=== PATIENT | male | born 1965 | race Caucasian/White ===

== ENCOUNTER 2021-03-10 08:50 | Inpatient (IN) | payer MEDICAID ==
[~2021-03-10] VITALS: Ht 177.8 cm; Wt 77.0 kg
[2021-03-10 10:14] LABS: BASOPHILS # (AUTO) 0.1 X10'3 (0-0.2); BASOPHILS % (AUTO) 0.6 % (0-1); EOSINOPHILS # (AUTO) 0.1 X10'3 (0-0.9); EOSINOPHILS % (AUTO) 0.7 % (0-6); HEMATOCRIT 42.4 % (42.0-52.0); HEMOGLOBIN 14.4 g/dl (14.0-17.9); LYMPHOCYTES # (AUTO) 1.8 X10'3 (1.1-4.8); LYMPHOCYTES % (AUTO) 12.3 % (21-51); MEAN CORPUSCULAR HEMOGLOBIN 31.6 PG (27.0-31.0); MEAN CORPUSCULAR VOLUME 92.8 FL (78-98); MEAN PLATELET VOLUME 6.4 FL (7.4-10.4); MONOCYTES # (AUTO) 1.3 X10'3 (0-0.9); MONOCYTES % (AUTO) 8.9 % (2-12); NEUTROPHILS # (AUTO) 11.3 X10'3 (1.8-7.7); NEUTROPHILS % (AUTO) 77.5 % (42-75); PLATELET COUNT 626 X10'3 (140-440); RED BLOOD COUNT 4.56 X10'6 (4.70-6.10); RED CELL DISTRIBUTION WIDTH 12.6 % (11.5-14.5); WHITE BLOOD COUNT 14.6 X10'3 (4.5-11.0)
[2021-03-10 10:35] LABS: ALANINE AMINOTRANSFERASE 17 U/L (12-78); ALKALINE PHOSPHATASE 64 IU/L (46-116); ANION GAP 14 (8-16); ASPARTATE AMINO TRANSFERASE 16 U/L (10-37); BILIRUBIN,TOTAL 0.3 MG/DL (0.1-1.0); BLOOD UREA NITROGEN 11 MG/DL (7-18); CALCIUM 8.6 MG/DL (8.5-10.1); CHLORIDE 96 MMOL/L (99-107); GLUCOSE 108 MG/DL (70-104); SODIUM 132 MMOL/L (135-145); TOTAL CARBON DIOXIDE 22.3 MMOL/L (24-32); TOTAL PROTEIN 7.9 G/DL (6.4-8.2); eGFR 78 ML/MIN
[2021-03-10] MEDS ORDERED: pantoprazole 40MG/NS 100ML BAG 100 ML IV ONE (11:30)
[2021-03-10] MEDS ORDERED: LORazepam 2 mg/ml vial IV ONE (11:30)
[2021-03-10] MEDS ORDERED: pantoprazole 40 MG vial IV ONE (11:30)
[2021-03-10] MEDS ORDERED: normal saline 1000ML IV soln IVB ONE (11:30)
[2021-03-10] MEDS ORDERED: ondansetron/PF 4mg/2ml inj IV ONE (11:30)
[2021-03-10] MEDS ORDERED: potassium Cl 20 mEq SR tablet PO PRN ×2 (11:55)
[2021-03-10] MEDS ORDERED: magnesium 4gm in 100ml NS 100 ML IV PRN (11:55)
[2021-03-10] MEDS ORDERED: magnesium Cl slow-release 64mg tablet PO PRN (11:55)
[2021-03-10] MEDS ORDERED: mag hydrox/Alum hydrox/simeth 30ml oral suspension PO PRN (11:55)
[2021-03-10] MEDS ORDERED: magnesium 2GM in 50ml NS 50 ML IV PRN (11:55)
[2021-03-10] MEDS ORDERED: magnesium hydroxide 30ml (MOM) UD suspension PO PRN (11:55)
[2021-03-10] MEDS ORDERED: ondansetron/PF 4mg/2ml inj IV PRN (11:55)
[2021-03-10] MEDS ORDERED: dextrose 50%-water 50ml dispensing syringe IV PRN (11:55)
[2021-03-10] MEDS ORDERED: HYDROcodone/acetaminophen 5mg/325mg tablet PO PRN (11:55)
[2021-03-10] MEDS ORDERED: potassium Cl 40MEQ/1/2NS 520ml 520 ML IV PRN ×2 (11:55)
[2021-03-10] MEDS ORDERED: acetaminophen 325mg tablet PO PRN ×2 (11:55)
[2021-03-10 11:59] LABS: LIPASE 76 U/L (73-393)
[2021-03-10 12:01] LABS: PARTIAL THROMBOPLASTIN TIME 26 SECONDS (22-32)
[2021-03-10] MEDS ORDERED: NO HOME MEDS (12:21)
[2021-03-10] MEDS: LORazepam 2 mg/ml vial IV PRN ×3 (12:40→15:49)
[2021-03-10] MEDS: normal saline 1000ml 1,000 ML IV SCH ×2 (12:41→20:56)
[2021-03-10] MEDS ORDERED: HYDR-3686 PO (12:51)
[2021-03-10] MEDS ORDERED: HYDR-3972 PO (12:51)
[2021-03-10] MEDS ORDERED: ESCI20TA PO (12:51)
[2021-03-10] MEDS ORDERED: FENO200C PO (12:51)
[2021-03-10] MEDS ORDERED: CYCL-394 PO (12:51)
[2021-03-10] MEDS ORDERED: METO-411 PO (12:51)
[2021-03-10] MEDS: morphine 2 MG/ML inj. syringe IV PRN (13:37)
--- NOTE | 2021-03-10 16:00 | NUR ---
LEIGH HERNANDEZ THAT PT IS STILL VERY ANXIOUS AFTER 3 DOSES OF ATIVAN. WILL ORDER HALDOL
[2021-03-10 16:11] LABS: CLARITY,URINE CLEAR (Clear); COLOR,URINE YELLOW (Yellow); GLUCOSE, URINE NEGATIVE (Neg); KETONES,URINE NEGATIVE (Neg); LEUKOCYTE ESTERASE ,URINE NEGATIVE (Neg); NITRITES, URINE NEGATIVE (Neg); OCCULT BLOOD,URINE NEGATIVE (Neg); PH,URINE 6.5 (4.8-8.0); PROTEIN,URINE NEGATIVE (Neg)
[2021-03-10 16:14] LABS: UA COLLECTION TYPE URINAL
[2021-03-10 16:20] LABS: URINE AMPHETAMINE SCREEN NEGATIVE (Neg); URINE BARBITUATE SCREEN NEGATIVE (Neg); URINE BENZODIAZEPINES SCREEN NEGATIVE (Neg); URINE CANNABINOID SCREEN POSITIVE (Neg); URINE COCAINE SCREEN NEGATIVE (Neg); URINE METHADONE SCREEN NEGATIVE (Neg); URINE OPIATE SCREEN POSITIVE (Neg); URINE PHENCYCLIDINE SCREEN NEGATIVE (Neg)
[2021-03-10] MEDS: haloperidol 5mg tablet PO PRN (16:40)
--- NOTE | 2021-03-10 17:40 | NUR ---
PAGER ID: [phone] MESSAGE: [id number] RE: [facility] BED 13, STILL REALLY AMPED UP AND NOT COOPERATING. GAVE HALDOL 1 HOUR AGO. WILL PROBABLY NEED A SITTER.
--- NOTE | 2021-03-10 18:00 | NUR ---
PT STILL AGITATED, CLL ONCE DOSE OF HALDOL ORDERED. PT PULLED OUT ANOTHER IV.
[2021-03-10] MEDS ORDERED: haloperidol lactate 5mg/ml inj IM ONE (18:05)
[2021-03-10] MEDS: haloperidol lactate 5mg/ml inj IM PRN (18:05)
[2021-03-10] MEDS: K and/or MAG REPLACEMENT MC SCH (20:00)
[2021-03-10] MEDS: pantoprazole 40MG/NS 100ML BAG 100 ML IV SCH ×2 (20:18→21:00)
[2021-03-11] VITALS (12 sets, daily range): BP systolic 119–146; BP diastolic 76–96
[2021-03-11] MEDS: haloperidol lactate 5mg/ml inj IM PRN (01:16)
[2021-03-11] MEDS: normal saline 1000ml 1,000 ML IV SCH ×3 (01:17→20:44)
[2021-03-11] MEDS: morphine 2 MG/ML inj. syringe IV PRN (01:17)
[2021-03-11] MEDS: pantoprazole 40MG/NS 100ML BAG 100 ML IV SCH ×4 (03:15→22:03)
[2021-03-11 03:44] LABS: BASOPHILS % (AUTO) 0.7 % (0-1); EOSINOPHILS # (AUTO) 0.1 X10'3 (0-0.9); EOSINOPHILS % (AUTO) 1.7 % (0-6); HEMATOCRIT 33.4 % (42.0-52.0); HEMOGLOBIN 11.3 g/dl (14.0-17.9); LYMPHOCYTES % (AUTO) 19.1 % (21-51); MEAN CORPUSCULAR HEMOGLOBIN 31.8 PG (27.0-31.0); MEAN CORPUSCULAR VOLUME 93.7 FL (78-98); MEAN PLATELET VOLUME 6.9 FL (7.4-10.4); MONOCYTES # (AUTO) 0.6 X10'3 (0-0.9); MONOCYTES % (AUTO) 10.9 % (2-12); NEUTROPHILS # (AUTO) 3.5 X10'3 (1.8-7.7); NEUTROPHILS % (AUTO) 67.6 % (42-75); PLATELET COUNT 389 X10'3 (140-440); RED BLOOD COUNT 3.56 X10'6 (4.70-6.10); RED CELL DISTRIBUTION WIDTH 12.7 % (11.5-14.5); WHITE BLOOD COUNT 5.1 X10'3 (4.5-11.0)
--- NOTE | 2021-03-11 06:35 | NUR ---
report given to Nora CHEEK ortho
[2021-03-11] MEDS: K and/or MAG REPLACEMENT MC SCH ×2 (08:00→20:00)
[2021-03-11 08:36] LABS: ALANINE AMINOTRANSFERASE 15 U/L (12-78); ALBUMIN 3.1 G/DL (3.4-5.0); ALKALINE PHOSPHATASE 56 IU/L (46-116); ANION GAP 11 (8-16); ASPARTATE AMINO TRANSFERASE 15 U/L (10-37); BILIRUBIN,TOTAL 0.3 MG/DL (0.1-1.0); BLOOD UREA NITROGEN 8 MG/DL (7-18); BUN/CREATININE RATIO 11.3 (5.4-32.0); CALCIUM 8.2 MG/DL (8.5-10.1); CHLORIDE 108 MMOL/L (99-107); CREATININE 0.71 MG/DL (0.60-1.10); GLUCOSE 91 MG/DL (70-104); MAGNESIUM 2.1 MG/DL (1.5-2.4); SODIUM 142 MMOL/L (135-145); TOTAL CARBON DIOXIDE 23.5 MMOL/L (24-32); TOTAL PROTEIN 6.2 G/DL (6.4-8.2); eGFR > 90 ML/MIN
[2021-03-11] MEDS ORDERED: MIDAZolam 1 MG/ML 5ML VIAL ONE (09:11)
[2021-03-11] MEDS ORDERED: LIDOcaine Viscous 15ml cup ONE (09:11)
[2021-03-11] MEDS ORDERED: fentaNYL/PF 50MCG/1 ML 2ML syringe ONE (09:11)
[2021-03-11] MEDS: LORazepam 2 mg/ml vial IV PRN ×3 (09:44→23:02)
[2021-03-11] MEDS: haloperidol 5mg tablet PO PRN ×2 (13:15→18:14)
[2021-03-11] MEDS ORDERED: hydrOXYzine 25 MG tablet PO PRN (13:35)
[2021-03-11] MEDS ORDERED: cyclobenzaprine 10mg tablet PO PRN (13:35)
[2021-03-11 14:43] LABS: BASOPHILS % (AUTO) 0.8 % (0-1); EOSINOPHILS % (AUTO) 0.6 % (0-6); HEMATOCRIT 31.7 % (42.0-52.0); HEMOGLOBIN 10.9 g/dl (14.0-17.9); LYMPHOCYTES # (AUTO) 0.7 X10'3 (1.1-4.8); LYMPHOCYTES % (AUTO) 14.8 % (21-51); MEAN CORPUSCULAR HEMOGLOBIN 31.7 PG (27.0-31.0); MEAN CORPUSCULAR HGB CONC 34.5 g/dL (33.0-36.5); MEAN CORPUSCULAR VOLUME 91.8 FL (78-98); MEAN PLATELET VOLUME 6.5 FL (7.4-10.4); MONOCYTES # (AUTO) 0.5 X10'3 (0-0.9); MONOCYTES % (AUTO) 10.9 % (2-12); NEUTROPHILS # (AUTO) 3.7 X10'3 (1.8-7.7); NEUTROPHILS % (AUTO) 72.9 % (42-75); PLATELET COUNT 404 X10'3 (140-440); RED BLOOD COUNT 3.45 X10'6 (4.70-6.10); RED CELL DISTRIBUTION WIDTH 12.6 % (11.5-14.5)
[2021-03-11] MEDS: HYDROcodone/acetaminophen 10/325mg tab PO PRN (20:42)
[2021-03-12] MEDS: pantoprazole 40MG/NS 100ML BAG 100 ML IV SCH ×3 (03:32→14:32)
[2021-03-12] MEDS: HYDROcodone/acetaminophen 10/325mg tab PO PRN ×2 (03:38→12:09)
[2021-03-12 06:00] VITALS: BP 115/82
--- NOTE | 2021-03-12 06:21 | NUR ---
Report to Senait CHEEK.
--- NOTE | 2021-03-12 06:26 | NUR ---
received report from shelly yee
[2021-03-12 06:52] LABS: BASOPHILS % (AUTO) 0.9 % (0-1); EOSINOPHILS # (AUTO) 0.1 X10'3 (0-0.9); EOSINOPHILS % (AUTO) 1.5 % (0-6); HEMATOCRIT 31.6 % (42.0-52.0); HEMOGLOBIN 10.7 g/dl (14.0-17.9); LYMPHOCYTES % (AUTO) 21.9 % (21-51); MEAN CORPUSCULAR HEMOGLOBIN 31.6 PG (27.0-31.0); MEAN CORPUSCULAR HGB CONC 33.8 g/dL (33.0-36.5); MEAN CORPUSCULAR VOLUME 93.4 FL (78-98); MEAN PLATELET VOLUME 6.6 FL (7.4-10.4); MONOCYTES # (AUTO) 0.6 X10'3 (0-0.9); MONOCYTES % (AUTO) 12.1 % (2-12); NEUTROPHILS % (AUTO) 63.6 % (42-75); PLATELET COUNT 431 X10'3 (140-440); RED BLOOD COUNT 3.38 X10'6 (4.70-6.10); RED CELL DISTRIBUTION WIDTH 12.4 % (11.5-14.5); WHITE BLOOD COUNT 4.6 X10'3 (4.5-11.0)
[2021-03-12 07:10] LABS: ALANINE AMINOTRANSFERASE 13 U/L (12-78); ALBUMIN 2.7 G/DL (3.4-5.0); ALBUMIN/GLOBULIN RATIO 0.9 (1.1-1.5); ALKALINE PHOSPHATASE 48 IU/L (46-116); ANION GAP 10 (8-16); ASPARTATE AMINO TRANSFERASE 14 U/L (10-37); BILIRUBIN,TOTAL 0.2 MG/DL (0.1-1.0); BLOOD UREA NITROGEN 7 MG/DL (7-18); BUN/CREATININE RATIO 10.3 (5.4-32.0); CHLORIDE 109 MMOL/L (99-107); CREATININE 0.68 MG/DL (0.60-1.10); GLUCOSE 96 MG/DL (70-104); MAGNESIUM 2.1 MG/DL (1.5-2.4); POTASSIUM 3.4 MMOL/L (3.5-5.1); SODIUM 141 MMOL/L (135-145); TOTAL CARBON DIOXIDE 22.4 MMOL/L (24-32); TOTAL PROTEIN 5.6 G/DL (6.4-8.2); eGFR > 90 ML/MIN
[2021-03-12] MEDS ORDERED: ESCITALOPRAM OXALATE 5 MG TABLET PO SCH (08:00)
[2021-03-12] MEDS ORDERED: metoprolol succinate 25mg (24-HOUR) SR. Tablet PO SCH (08:00)
[2021-03-12] MEDS ORDERED: fenofibrate 145mg tablet PO SCH (08:00)
[2021-03-12] MEDS: K and/or MAG REPLACEMENT MC SCH (08:00)
[2021-03-12] MEDS: morphine 2 MG/ML inj. syringe IV PRN (09:30)
[2021-03-12 10:00] VITALS: BP 136/91
--- NOTE | 2021-03-12 11:17 | NUR ---
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 Pt reports vomiting since w/ no significant PO intake. Pt states he was able to eat well prior to and has no hx of weight loss. No visible fat or muscle wasting observed at bedside. No edema present. At this time, pt does not meet minimum 2 criteria for malnutrition. will continue to monitor. Addendum: 03/12/21 at [address] Amended: Links added.
[2021-03-12] MEDS ORDERED: LORazepam 1 MG tablet PO PRN (11:55)
[2021-03-12] MEDS ORDERED: LORazepam 2 mg/ml vial IV PRN (11:55)
[2021-03-12] MEDS ORDERED: POTA20TA19 PO (13:46)
[2021-03-12] MEDS ORDERED: OMEP40CA21 PO (13:46)
[2021-03-12] MEDS: haloperidol 5mg tablet PO PRN (13:56)
[2021-03-12] MEDS: normal saline 1000ml 1,000 ML IV SCH (14:33)
[2021-03-12] MEDS ORDERED: ACAM333T8 PO (14:44)
[2021-03-12] MEDS ORDERED: HYDR50CA5 PO (14:44)
[2021-03-14] MEDS ORDERED: LORazepam 2 mg/ml vial IV PRN (11:55)
[2021-03-14] MEDS ORDERED: LORazepam 1 MG tablet PO PRN (11:55)
== END 2021-03-12 15:00 | disposition home or self-care (01) | DRG 243 ==
LOC: ER 08:50 → ED HOLD 11:57 → ORTHO 4S 03-11 11:30
PROVIDERS: ADMIT Internal Medicine; ATTEND Internal Medicine
PROC: 0DB68ZX Excision of Stomach, Via Natural or Artificial Opening Endoscopic, Diagnostic (ICD-10-PCS; principal; 2021-03-11)
DX: K20.91 Esophagitis, unspecified with bleeding (principal); K26.4 Chronic or unspecified duodenal ulcer with hemorrhage; E87.1 Hypo-osmolality and hyponatremia; R71.0 Precipitous drop in hematocrit; E78.5 Hyperlipidemia, unspecified; F10.230 Alcohol dependence with withdrawal, uncomplicated; F15.90 Other stimulant use, unspecified, uncomplicated; K29.71 Gastritis, unspecified, with bleeding; F32.9 Major depressive disorder, single episode, unspecified; F41.9 Anxiety disorder, unspecified; G89.4 Chronic pain syndrome; E87.6 Hypokalemia; I10 Essential (primary) hypertension; Z79.899 Other long term (current) drug therapy; Z71.41 Alcohol abuse counseling and surveillance of alcoholic; Z71.51 Drug abuse counseling and surveillance of drug abuser
CPT/HCPCS: 36415; 43239; 71045; 76700; 80053; 80305; 81003; 83690; 83735; 85025; 85610; 85730; 86885; 86900; 86901; 87081; 96365; 96375; 97161; 97530; 99152; 99291; A4620; C9113; G0378; J1630; J2060; J2250; J2270; J2405; J3010; J7030; J7040

== ENCOUNTER 2022-09-01 18:08 | Emergency (ER) | payer MEDICARE, MEDICAID ==
[~2022-09-01] VITALS: Ht 177.8 cm; Wt 77.3 kg
[~2022-09-01 18:08] MED LIST: ACAM333T8 PO; CYCL-394 PO; ESCI20TA PO; FENO200C22 PO; HYDR-3686 PO; HYDR-3972 PO; HYDR50CA5 PO; METO-411 PO; OMEP40CA21 PO; POTA-207 PO
--- NOTE | 2022-09-01 21:52 | NUR ---
PT STATES NO SI/ NO SI HX STATES: "PEOPLE ARE TRYING TO TAKE OVER HIS THINGS" "HE KNOWS THEY ARE REAL" BUT FAMILY MEM[employer]ERS PERSIST HE IS HAVING HALLUCINATIONS. PT STATES HE FEELS PARANOID AND TIRED. NO OTHER MEDICAL COMPLAINTS
[2022-09-01 22:17] LABS: BASOPHILS # (AUTO) 0.1 X10'3 (0-0.2); BASOPHILS % (AUTO) 1.3 % (0-1); EOSINOPHILS # (AUTO) 0.3 X10'3 (0-0.9); HEMATOCRIT 36.5 % (42.0-52.0); HEMOGLOBIN 11.9 g/dl (14.0-17.9); LYMPHOCYTES # (AUTO) 1.5 X10'3 (1.1-4.8); LYMPHOCYTES % (AUTO) 26.4 % (21-51); MEAN CORPUSCULAR HEMOGLOBIN 26.2 PG (27.0-31.0); MEAN CORPUSCULAR HGB CONC 32.6 g/dL (33.0-36.5); MEAN CORPUSCULAR VOLUME 80.4 FL (78-98); MEAN PLATELET VOLUME 6.7 FL (7.4-10.4); MONOCYTES # (AUTO) 0.5 X10'3 (0-0.9); MONOCYTES % (AUTO) 9.2 % (2-12); NEUTROPHILS # (AUTO) 3.3 X10'3 (1.8-7.7); NEUTROPHILS % (AUTO) 57.1 % (42-75); PLATELET COUNT 456 X10'3 (140-440); RED BLOOD COUNT 4.55 X10'6 (4.70-6.10); RED CELL DISTRIBUTION WIDTH 16.3 % (11.5-14.5); WHITE BLOOD COUNT 5.8 X10'3 (4.5-11.0)
[2022-09-01 22:28] LABS: ALANINE AMINOTRANSFERASE 18 U/L (12-78); ALBUMIN 4.1 G/DL (3.4-5.0); ALBUMIN/GLOBULIN RATIO 1.1 (1.1-1.5); ALKALINE PHOSPHATASE 65 IU/L (46-116); ANION GAP 11 (8-16); ASPARTATE AMINO TRANSFERASE 20 U/L (10-37); BILIRUBIN,TOTAL 0.3 MG/DL (0.1-1.0); BLOOD UREA NITROGEN 17 MG/DL (7-18); BUN/CREATININE RATIO 16.3 (5.4-32.0); CALCIUM 9.2 MG/DL (8.5-10.1); CHLORIDE 100 MMOL/L (99-107); CREATININE 1.04 MG/DL (0.60-1.10); GLUCOSE 73 MG/DL (70-104); POTASSIUM 3.7 MMOL/L (3.5-5.1); SODIUM 136 MMOL/L (135-145); TOTAL CARBON DIOXIDE 24.6 MMOL/L (24-32); TOTAL PROTEIN 7.9 G/DL (6.4-8.2); eGFR 74 ML/MIN
[2022-09-01 22:29] LABS: ETHANOL < 0.010 GM/DL (0.0-0.010)
[2022-09-01] MEDS ORDERED: OLANZapine 2.5MG tablet PO ONE (22:30)
[2022-09-01] MEDS ORDERED: OLANZapine 2.5MG tablet PO SCH (22:30)
[2022-09-01 22:45] LABS: URINE AMPHETAMINE SCREEN POSITIVE (Neg); URINE BARBITUATE SCREEN NEGATIVE (Neg); URINE BENZODIAZEPINES SCREEN NEGATIVE (Neg); URINE CANNABINOID SCREEN POSITIVE (Neg); URINE COCAINE SCREEN NEGATIVE (Neg); URINE METHADONE SCREEN NEGATIVE (Neg); URINE OPIATE SCREEN POSITIVE (Neg); URINE PHENCYCLIDINE SCREEN NEGATIVE (Neg)
[2022-09-01] MEDS ORDERED: ibuprofen tablet 400 MG TABLET PO ONE (23:30)
[2022-09-02] MEDS ORDERED: hydrOXYzine 25 MG tablet PO PRN ×2 (01:25→01:30)
[2022-09-02] MEDS ORDERED: cyclobenzaprine 10mg tablet PO PRN (01:25)
[2022-09-02] MEDS ORDERED: diphenhydrAMINE 50 mg/ml inj IM ONE (01:50)
[2022-09-02] MEDS ORDERED: LORazepam 2 mg/ml vial IM ONE (01:50)
--- NOTE | 2022-09-02 05:29 | NUR ---
SITTING WITH PATIENT. PT HAS NOT SLEPT ALL NIGHT. PT RESTLESS WITH 1 OR 2 MIN OF CLAMNESS. PTS VISUAL HALLUCINATION INCREASEING TIME WITHOUT SLEEP CONTINUES. MD LOMBARDI
[2022-09-02 05:42] VITALS: BP 147/92
--- NOTE | 2022-09-02 07:51 | NUR ---
Dayana Guerrier (daughter) [phone] Nina (ex-, POA per daughter) [phone]
[2022-09-02] MEDS ORDERED: ESCITALOPRAM OXALATE 5 MG TABLET PO SCH (08:00)
[2022-09-02] MEDS ORDERED: acamprosate DR 333mg Tablet PO SCH (08:00)
[2022-09-02] MEDS ORDERED: pantoprazole 40mg Tablet.DR PO SCH (08:00)
[2022-09-02] MEDS ORDERED: metoprolol succinate 25mg (24-HOUR) SR. Tablet PO SCH (08:00)
[2022-09-02] MEDS ORDERED: potassium Cl 20 mEq SR tablet PO SCH (08:00)
--- NOTE | 2022-09-02 08:22 | NUR ---
ER meal request faxed to dietary. Regular safety tray requested.
[2022-09-02] MEDS ORDERED: fenofibrate 145mg tablet PO SCH (08:30)
[2022-09-02] MEDS ORDERED: nicotine 21mg patch - 24 hr TD ONE (09:35)
== END 2022-09-02 13:20 | disposition home or self-care (01) ==
LOC: ER 18:09
DX: F15.10 Other stimulant abuse, uncomplicated (principal); Z20.822 Contact with and (suspected) exposure to COVID-19; R44.1 Visual hallucinations; E78.00 Pure hypercholesterolemia, unspecified; I10 Essential (primary) hypertension; F12.10 Cannabis abuse, uncomplicated; Z79.899 Other long term (current) drug therapy
CPT/HCPCS: 36415; 80053; 80305; 80320; 85025; 87811; 96372; 99285; J1200; J2060